=== PATIENT | female | born 1995 | race Caucasian/White ===

== ENCOUNTER 2020-07-18 10:22 | Emergency (ER) | payer OTHER, SELFPAY ==
--- NOTE | ~2020-07-18 | XR_ITS ---
EXAMINATION: XR foot LT min 3V DATE: 07/18/2020 10:51 INDICATION: Left foot pain TECHNIQUE: Dorsoplantar, lateral, and 2 oblique views of the left foot were obtained. COMPARISON: None. FINDINGS: There is dorsolateral soft tissue swelling of the foot overlying the metatarsals. There is no fracture, dislocation, or subluxation. The joint spaces are normal. IMPRESSION: 1. Dorsolateral soft tissue swelling of the foot without underlying osseous abnormality. Reviewed, dictated and finalized at location A. IMPRESSION: 1. Dorsolateral soft tissue swelling of the foot without underlying osseous abn ormality.
[2020-07-18 10:39] VITALS: BP 117/55; PULSE 106; RESP 16; TEMP 37.3; O2SAT 100
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
--- NOTE | 2020-07-18 12:09 | PC.NURSE ---
PT TAKEN TO RADIOLOGY AND ROOM IN WHEELCHAIR
== END 2020-07-18 11:55 | disposition home or self-care (01) ==
PROVIDERS: Emergency Provider Registered Nurse; PCP Family Medicine
DX: S90.32XA Contusion of left foot, initial encounter (principal); V86.16XA Passenger of dirt bike or motor/cross bike injured in traffic accident, initial encounter; F17.210 Nicotine dependence, cigarettes, uncomplicated
CPT/HCPCS: 73630; 99203; G0463

== ENCOUNTER 2020-12-06 16:45 | Emergency (ER) | payer MEDICAID, SELFPAY ==
--- NOTE | 2020-12-06 16:53 | ED.URI ---
HPI - URI/Sore Throat General Chief Complaint: Upper Respiratory Infection Stated Complaint: possible sinus infection Source: patient Mode of arrival: ambulatory Limitations: no limitations History of Present Illness HPI Narrative: Patient is a 25-year-old female who presents complaining of headache, sinus pressure and congestion x2 weeks. Patient reports that she had Covid in early October and has since recovered. Patient reports signs and symptoms for the past 2 weeks that are unresolved with use of [id number] medications at this time. She denies fever, chills, cough or other complaints. She has no significant medical history. MD elicited complaint: sinus pain Related Data Allergies Allergy/AdvReac Type Severity Reaction Status Date / Time No Known Allergies Allergy Verified 12/06/20 16:52 Review of Systems Review of Systems: Narrative: CONSTITUTIONAL: Denies fever, chills, or sweats. EYES: Denies visual changes, redness, or discharge. ENT: Reports congestion and pressure CARDIOVASCULAR: Denies chest pain, palpitations, or edema. RESPIRATORY: Denies cough or dyspnea. GASTROINTESTINAL: Denies abdominal pain, nausea, vomiting, or diarrhea. GENITOURINARY: Denies dysuria or hematuria. SKIN: Denies rash or itching. MUSCULOSKELETAL: Denies back pain, joint pain, or myalgia. NEUROLOGIC: Reports headache, denies numbness, dizziness, or weakness. PSYCHIATRIC: Denies anxiety or depression. [facility] Past Medical History Medical History Fracture of left upper limb Headache Stress fracture of right foot Surgical History Surgical History History of dilatation and curettage Social History Social History Smoking packs per day: 0.25 Smoking cigarettes per day: 5.0 Years smoked: 7 Smoking pack-years: 1.75 Smoking status: Current every day smoker Tobacco type: cigarettes Alcohol intake: current Substance use: never Gender identity (if verbalized by the patient): Female Comments At the time of signature, I have reviewed and agree with nursing past medical, surgical, social, and family history unless otherwise noted. Please see nursing chart for further information. There is no relevant family history pertinent to the presenting complaint. Exam Narrative: Exam Narrative: GENERAL: Well-appearing, well-nourished, and in no acute distress. HEAD: Normocephalic, atraumatic. EYES: No redness or drainage. Conjunctiva are normal. ENT: Mucous membranes pink and moist. Nares clear. No rhinorrhea. Frontal sinus tenderness with palpation NECK: AROM. Supple. No lymphadenopathy. CHEST: No respiratory distress. HEART: Regular rate and rhythm. EXTREMITIES: Normal range of motion. SKIN: Warm, dry, no rash. NEURO: No focal deficits. Alert and oriented x3. Gait steady. PSYCH: Normal affect. No signs of depression or anxiety. MDM - URI/Sore Throat MDM Narrative Medical decision making narrative: Patient most likely has sinusitis. Augmentin to be started at this time. Discussed with patient the need to stay well-hydrated as well as follow-up with PCP. Patient agrees with plan of care. Patient is stable for discharge home with outpatient follow-up as directed Differential Diagnosis Differential diagnosis: Likely upper respiratory infection, sinusitis and viral infection Medical Records Attestation: I reviewed the patient's medical records. Critical Care Time Critical Care Time Critical Care Time: No Discharge Plan Discharge Clinical Impression: Sinusitis Qualifiers: Sinusitis location: unspecified location Chronicity: acute Recurrence: not specified as recurrent Qualified Code(s): J01.90 - Acute sinusitis, unspecified Patient Disposition: Home, Self-Care Condition: Stable Instructions: Antibiotic Form, Sinusitis (ED) Additional In
[2020-12-06 17:01] VITALS: BP 130/62; PULSE 72; RESP 16; TEMP 36.6; O2SAT 100
== END 2020-12-06 17:24 | disposition home or self-care (01) ==
PROVIDERS: Emergency Provider Nurse Practitioner
DX: J01.90 Acute sinusitis, unspecified (principal); F17.210 Nicotine dependence, cigarettes, uncomplicated
CPT/HCPCS: 99213; G0463

== ENCOUNTER 2021-04-18 16:10 | Emergency (ER) | payer OTHER, SELFPAY ==
[2021-04-18 16:41] VITALS: BP 125/75; PULSE 92; RESP 16; TEMP 37.4; O2SAT 100
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
== END 2021-04-18 17:07 | disposition home or self-care (01) ==
PROVIDERS: Emergency Provider Nurse Practitioner Family
DX: M62.830 Muscle spasm of back (principal); S39.012A Strain of muscle, fascia and tendon of lower back, initial encounter; X50.9XXA Other and unspecified overexertion or strenuous movements or postures, initial encounter; F17.210 Nicotine dependence, cigarettes, uncomplicated
CPT/HCPCS: 99213; G0463

== ENCOUNTER 2021-06-11 15:21 | Emergency (ER) | payer OTHER, SELFPAY ==
[2021-06-11 15:36] VITALS: BP 112/70; PULSE 67; RESP 20; TEMP 36.8; O2SAT 100
--- NOTE | 2021-06-11 16:05 | ED.GENADULT ---
HPI - General Adult General Chief complaint: Upper Respiratory Infection Stated complaint: sinus infection Source: patient Mode of arrival: ambulatory Limitations: no limitations History of Present Illness HPI narrative: 25 y/o female. PMHx: None reported. Presents to [facility] today with acute complaints of sinus congestion and maxillary facial pressure, worsening for the past 3 days. No fever, chills. No cough, chest congestion, abdominal pain, N.V. She denies HUNTER, sore throat, Otalgia. Client reports sub-therapeutic relief to home OTC remedies. No additional acute c/o illness has been relayed upon exam. Related Data Allergies Allergy/AdvReac Type Severity Reaction Status Date / Time No Known Allergies Allergy Verified 06/11/21 16:05 Review of Systems Review of Systems: CONSTITUTIONAL: Denies fever, chills, sweats. EYES: Denies visual changes, redness, discharge. ENT: Positive rhinorrhea, congestion. No sore throat, otalgia. CARDIOVASCULAR: Denies chest pain, palpitations, edema. RESPIRATORY: Denies dyspnea, wheezing, cough GASTROINTESTINAL: Denies abdominal pain, nausea, vomiting, diarrhea. GENITOURINARY: Denies dysuria, hematuria, abnormal discharge SKIN: Denies rash or itching. MUSCULOSKELETAL: Denies acute back pain, joint pain, or myalgia. NEUROLOGIC: Denies numbness, or focal weakness. PSYCHIATRIC: Denies anxiety or depression. All systems reviewed & are unremarkable except as noted in HPI and below PMFSH Past Medical History Medical History Fracture of left upper limb Headache Stress fracture of right foot Surgical History Surgical History History of dilatation and curettage Social History Social History Smoking packs per day: 0.25 Smoking cigarettes per day: 5.0 Years smoked: 7 Smoking pack-years: 1.75 Smoking status: Current every day smoker Tobacco type: cigarettes Alcohol intake: current Substance use: never Gender identity (if verbalized by the patient): Female Exam Narrative: GENERAL: This is a well-nourished, well-developed adult, in no apparent distress. HEAD: normocephalic, atraumatic. EYES: PERRL. Sclera clear/white. EARS: External ears normal, auditory canals clear and without drainage, TMs normal. NOSE: External nose normal. Positive purulent nasal congestion. no obstruction, nares patent. PND and maxillary sinus pressure, reproducible. THROAT: Mucous membranes moist, posterior pharynx clear. No exudates. NECK: Neck supple, non-tender without lymphadenopathy, masses or thyromegaly. CARDIOVASCULAR: Regular rate and rhythm without murmurs, gallops, or rubs. RESPIRATORY: Clear to auscultation. Breath sounds equal bilaterally. No wheezes, rales, or rhonchi. GASTROINTESTINAL: Abdomen soft, non-tender, nondistended. Bowel sounds are active. No guarding. SKIN: warm, intact with no suspicious lesions or rash, good texture and turgor. NEURO: Alert, active, and age appropriate. No focal neurologic deficits. EXTREMITIES: Negative. Course Course Emergency Course: -25 y/o female. Negative PMH. -Reports sinus congestion, nasal discharge, facial pressure, worsening. -No Covid 19 concerns. Vital Signs Vital signs: Vital Signs Temperature 36.8 C 06/11/21 15:36 Pulse Rate 67 06/11/21 15:36 Respiratory Rate 20 06/11/21 15:36 Blood Pressure 112/70 06/11/21 15:36 Pulse Oximetry 100 06/11/21 15:36 Temperature 36.8 C 06/11/21 15:36 Pulse Rate 67 06/11/21 15:36 Respiratory Rate 20 06/11/21 15:36 Blood Pressure 112/70 06/11/21 15:36 Pulse Oximetry 100 06/11/21 15:36 Medical Decision Making [facility] Narrative Medical decision making narrative: -Physical exam consistent with Maxillary Sinusitis, Acute, non-toxic. -Start Zpack & Medrol dose regimen. -Re
== END 2021-06-11 16:09 | disposition home or self-care (01) ==
PROVIDERS: Emergency Provider Nurse Practitioner Adult Health
DX: J01.90 Acute sinusitis, unspecified (principal); F17.210 Nicotine dependence, cigarettes, uncomplicated
CPT/HCPCS: 99213; G0463

== ENCOUNTER 2022-03-06 13:08 | Emergency (ER) | payer OTHER, SELFPAY ==
--- NOTE | ~2022-03-06 | XR_ITS ---
EXAMINATION: XR hip RT min 3V w AP pelvis INDICATION: Right hip pain TECHNIQUE: AP view the pelvis and three views of the right hip are obtained. COMPARISON: None available FINDINGS: Bone alignment is normal. There is no fracture. The soft tissues are unremarkable. An IUD i s noted in the pelvis. IMPRESSION: 1. No acute osseous abnormality. Reviewed, dictated and finalized at location F.
--- NOTE | ~2022-03-06 | CT_ITS ---
EXAMINATION: CTA abd aorta runoff DATE: 03/06/2022 18:09 INDICATION: Recent right hip surgery with right foot: The touch and skin changes in the right lower e xtremity TECHNIQUE: Computed tomographic angiography (CTA) of the abdomen, pelvis, and both lower extremities was performed with 150 mL Omnipaque-350 intravenous contrast. The dose-length product (DLP) was 651.6 4 mGy-cm. Maximum intensity projection 3D-reconstructions of the arteries were created by the technol gunnar on a separate workstation. Automated exposure control and iterative reconstruction technique we re employed. COMPARISON: None. FINDINGS: ABDOMINAL AORTA AND ITS BRANCHES: Celiac axis, superior mesenteric artery, inferior mesenteric artery are unremarkable. There are two r ight renal arteries which originate immediately adjacent to one another. A single left renal artery i s present. PELVIC VASCULATURE: Normal RIGHT LOWER EXTREMITY VASCULATURE: The anterior tibial artery is diminutive beyond its midportion and not visualized at the ankle. The d orsalis pedis artery is not well demonstrated. The right lower extremity vasculature is otherwise nor mal with a two-vessel runoff at the ankle. LEFT LOWER EXTREMITY VASCULATURE: The anterior tibial artery is not well opacified in its distalmost portion. The left lower extremity vasculature is otherwise normal with a two-vessel runoff at the ankle. ADDITIONAL FINDINGS: The lung bases are clear. The heart size is normal. The liver, spleen, pancreas, gallbladder, and adr enal glands are normal. The kidneys are unremarkable. No pathologically enlarged abdominal or pelvic lymph nodes are identified. There is no free intraperitoneal gas or evidence of bowel obstruction. An IUD is in expected position. There is prominence of the periatrial veins in the pelvis. A small area of surgical change is noted overlying the right hip. IMPRESSION: 1. Right anterior tibial artery not well opacified beyond its midportion and not visualized ankle. Ri ght dorsalis pedis artery not well demonstrated. 2. Left anterior tibial artery not well opacified in its distalmost portion. Reviewed, dictated and finalized at location F. IMPRESSION: 1. Right anterior tibial artery not well opacified beyond its midportion and no t visualized ankle. Right dorsalis pedis artery not well demonstrated. 2. Left anterior tibial artery not well opacified in its distalmost portion.
--- NOTE | ~2022-03-06 | US_ITS ---
EXAMINATION: US venous doppler LE RT DATE: 03/06/2022 15:36 INDICATION: Skin discoloration of the right lower extremity, recent hip surgery TECHNIQUE: Heck scale images without and with compression and Doppler images of the right lower extre mity veins were obtained. COMPARISON: None FINDINGS: The right common femoral vein, profunda femoral vein, femoral vein, popliteal vein, peronea l trunk, posterior tibial veins, and greater saphenous vein are patent. IMPRESSION: 1. Patent right lower extremity veins. No evidence of deep venous thrombosis. Reviewed, dictated and finalized at location F.
[2022-03-06 13:31] VITALS: BP 145/79; PULSE 101; RESP 19; TEMP 37.1; O2SAT 99
--- NOTE | 2022-03-06 13:38 | ED.LOWEXIN ---
HPI - Extremity Injury (Lower) General Chief Complaint: Extremity Injury, Lower <Regina Valentin PA-C - Last Filed: 03/06/22 19:31> Stated Complaint: hip surgery two weeks ago, reports calf pain <Regian Valentin PA-C - Last Filed: 03/06/22 19:31> Time Seen by Provider: 03/06/22 13:32 <ADALI Mata Last Filed: 03/06/22 19:31> Source: patient <ADALI Mata Last Filed: 03/06/22 19:31> Mode of arrival: ambulatory <ADALI Mata Last Filed: 03/06/22 19:31> Limitations: no limitations <ADALI Mata Last Filed: 03/06/22 19:31> History of Present Illness HPI Narrative: Patient is a 26-year-old female who presents the ED with report of tingling and coldness in her right lower leg. Patient reports she had left hip surgery done 2 weeks ago at [facility] for a labral tear and clean-out. She has been on aspirin 81 mg once daily since the surgery. She has been doing well since then but does report having tingling sensation, like [id number], in her right lower leg since the surgery. She also reports having temperature difference and coldness in her right lower leg compared to the left. Yesterday, she noticed her right lower extremity to be discolored and red. She took a picture of this on her phone. She called her surgeon's office but was only able to make an appointment for Saturday, thus she decided to present to the ED here today. Patient denies any weakness, fever, chills, pain, swelling, chest pain, SOB. <ADALI Mata Last Filed: 03/06/22 19:31> Related Data Home Medications: Home Medications Medication Instructions Recorded Confirmed aspirin [Aspir-81] 81 mg PO DAILY 03/06/22 diazepam 5 mg PO BID PRN 03/06/22 naproxen 500 mg PO BID 03/06/22 sertraline 50 mg PO DAILY 03/06/22 <ADALI Mata Last Filed: 03/06/22 19:31> Allergies/Adverse Reactions: Allergies Allergy/AdvReac Type Severity Reaction Status Date / Time No Known Allergies Allergy Verified 03/06/22 14:41 <Regina Valentin PA-C - Last Filed: 03/06/22 19:31> Review of Systems Review of Systems: CONSTITUTIONAL: Denies fever, chills. CARDIOVASCULAR: Denies chest pain. RESPIRATORY: Denies dyspnea. SKIN: Reports cold temperature to R lower leg. Denies swelling to RLE. MUSCULOSKELETAL: Denies RLE pain. NEUROLOGIC: Reports tingling/pins and needles sensation to RLE. Denies weakness. <Regina Valentin PA-C - Last Filed: 03/06/22 19:31> All systems reviewed & are unremarkable except as noted in HPI and below <Regina Valentin PA-C - Last Filed: 03/06/22 19:31> PMFSH Past Medical History Medical History: Medical History (Updated 03/06/22 @ 18:42 by Regina Valentin PA-C) No pertinent past medical history <Regina Valentin PA-C - Last Filed: 03/06/22 19:31> Surgical History Surgical History: Surgical History (Updated 03/06/22 @ 18:42 by Regina Valentin PA-C) History of hip surgery <Regina Valentin PA-C - Last Filed: 03/06/22 19:31> Social History Social History: Social History (Updated 03/06/22 @ 18:31 by Regina Valentin PA-C) Smoking status: Never smoker <Regina Valentin PA-C - Last Filed: 03/06/22 19:31> Exam Narrative: GENERAL: Well appearing, well-nourished, non-toxic, in no acute distress. HEAD: Normocephalic, atraumatic. NECK: Supple. No adenopathy, no masses. RESPIRATORY: Airway patent, respirations nonlabored. Clear to auscultation bilaterally, no rales, rhonchi, wheezing. CARDIOVASCULAR: Regular rate and rhythm without murmurs, rubs, or gallops. Femoral, popliteal, and PT pulses 2+ and equal bilaterally. Bilateral DP pulses not palpated or Dopplered on exam. MUSCULOSKELETAL: Moves all extremities. Strength/ROM intact of RLE. No edema in RLE. No R calf tenderness. SKIN: Warm, dry, RLE slightly cooler than LLE. No rashes. No warmth or erythema or RLE. Post surgical steri strips in place over R hip, wound jb
--- NOTE | 2022-03-06 14:51 | PC.NURSE ---
Right post tibial pulse obtained using doppler.
[2022-03-06 17:37] LABS: Anion Gap 8 mmol/L (8-16); Blood Urea Nitrogen 12 mg/dL (7-17); Calcium 9.3 mg/dL (8.4-10.2); Carbon Dioxide 30 mmol/L (22-30); Chloride 100 mmol/L (98-107); Estimated CRCL calculation 82 ml/min; Estimated Glomerular Filt Rate > 60; Glucose 73 mg/dL (65-110); Potassium 3.8 mmol/L (3.4-5.0); Sodium 138 mmol/L (137-145)
[2022-03-06 17:38] VITALS: BP 129/73; PULSE 79; RESP 18; O2SAT 99
[2022-03-06 19:06] VITALS: BP 129/73; PULSE 80; RESP 18; O2SAT 99
== END 2022-03-06 19:05 | disposition home or self-care (01) ==
PROVIDERS: Physician Assistant; Emergency Provider Emergency Medicine; PCP Family Medicine
DX: R29.898 Other symptoms and signs involving the musculoskeletal system (principal); M79.661 Pain in right lower leg; Z98.890 Other specified postprocedural states
CPT/HCPCS: 36415; 73502; 75635; 80048; 81025; 93971; 99284; Q9967

== ENCOUNTER 2022-09-23 15:31 | Emergency (ER) | payer OTHER, SELFPAY ==
[2022-09-23 15:57] VITALS: BP 116/61; PULSE 69; RESP 16; TEMP 36.5; O2SAT 100
--- NOTE | 2022-09-23 17:42 | ED.URI ---
HPI - URI/Sore Throat General Chief Complaint: Upper Respiratory Infection Stated Complaint: Sore Throat Time Seen by Provider: 09/23/22 17:42 Source: patient Mode of arrival: ambulatory Limitations: no limitations History of Present Illness HPI Narrative: 27-year-old female presents with complaint of sore throat, cough, nasal congestion, fatigue for 2 days. Reports both her kids at sick with similar symptoms. Denies nausea vomiting diarrhea. No chest pain or shortness of breath. Taking [id number] Mucinex cold and flu to Treat her symptoms. all systems reviewed and negative except as noted above. Related Data Home Medications Medication Instructions Recorded Confirmed sertraline 50 mg tablet 50 mg PO DAILY 03/06/22 09/23/22 Allergies Allergy/AdvReac Type Severity Reaction Status Date / Time No Known Allergies Allergy Verified 09/23/22 16:48 Review of Systems Review of Systems: CONSTITUTIONAL: Denies fever, chills, or sweats. Reports fatigue. EYES: Denies visual changes, redness, or discharge. ENT: Reports rhinorrhea, congestion, sore throat,, tonsil stones. Denies otalgia. CARDIOVASCULAR: Denies chest pain, palpitations, or edema. RESPIRATORY: reports cough. Denies dyspnea. GASTROINTESTINAL: Denies abdominal pain, nausea, vomiting, or diarrhea. GENITOURINARY: Denies dysuria or hematuria. SKIN: Denies rash or itching. MUSCULOSKELETAL: Denies back pain, joint pain, or myalgia. NEUROLOGIC: Denies headache, numbness, or weakness. PSYCHIATRIC: Denies anxiety or depression. All other systems reviewed are negative, except as documented in HPI. [facility] Past Medical History Medical History (Updated 09/23/22 @ 17:54 by Winnie Estrada NP) No pertinent past medical history Surgical History Surgical History (Updated 03/06/22 @ 18:42 by Regina Haley PA-C) History of hip surgery Social History Social History (Updated 03/06/22 @ 18:31 by Regina Haley PA-C) Smoking status: Never smoker Comments At time of signature, agree with nursing past medical, surgical, social and family history. There is no relevant family history pertinent to the presenting complaint. Exam Narrative: GENERAL: This is a well-nourished, well-developed patient, in no apparent distress. HEAD: normocephalic, atraumatic. EYES: PERRL. Sclera clear/white. Vision is grossly intact. EARS: External ears normal, auditory canals clear and without drainage, TMs normal without perforation. Hearing grossly intact. NOSE: External nose normal with clear nasal drainage. THROAT: Mucous membranes moist, To tonsil stones noted to right tonsil with erythema. NECK: Neck supple, non-tender without lymphadenopathy, masses or thyromegaly. CARDIOVASCULAR: Regular rate and rhythm without murmurs, gallops, or rubs. RESPIRATORY: Clear to auscultation. Breath sounds equal bilaterally. No wheezes, rales, or rhonchi. SKIN: warm, Dry, intact with no suspicious lesions or rash, good texture and turgor. NEURO: awake, alert, and oriented to person, place and time. There were no obvious focal neurologic abnormalities. EXTREMITIES: No joint tenderness, effusion, or edema noted. Course Course Level of Care: Express Care Visit Vital Signs Vital signs: Vital Signs Temperature 36.5 C 09/23/22 15:57 Pulse Rate 69 09/23/22 15:57 Respiratory Rate 16 09/23/22 15:57 Blood Pressure 116/61 09/23/22 15:57 Pulse Oximetry 100 09/23/22 15:57 Oxygen Delivery Room Air 09/23/22 15:57 Temperature 36.5 C 09/23/22 15:57 Pulse Rate 69 09/23/22 15:57 Respiratory Rate 16 09/23/22 15:57 Blood Pressure 116/61 09/23/22 15:57 Pulse Oximetry 100 09/23/22 15:57 Oxygen Delivery Room Air 09/23/22 15:57 reviewed MDM - URI/Sore Throat MDM Narrative Medical decision making narrative: Patient is aware of diagnosis, understands and agrees to treatment plan. Anticipatory guidance given. Patient agre
== END 2022-09-23 18:02 | disposition home or self-care (01) ==
PROVIDERS: Emergency Provider Nurse Practitioner Family; PCP Family Medicine
DX: J06.9 Acute upper respiratory infection, unspecified (principal); J35.8 Other chronic diseases of tonsils and adenoids
CPT/HCPCS: 87081; 87804; 87880; 99213; G0463

== ENCOUNTER 2022-09-26 19:47 | Emergency (ER) | payer OTHER, SELFPAY ==
--- NOTE | ~2022-09-26 | XR_ITS ---
EXAMINATION: XR chest 2V DATE: 09/26/2022 20:39 INDICATION: Pain with respiration TECHNIQUE: Frontal and lateral views of the chest are obtained COMPARISON: None available FINDINGS: The lungs are free of acute opacities. No pleural effusion or pneumothorax. The cardiomedia stinal silhouette is normal. The visualized bones and soft tissues are unremarkable. IMPRESSION: 1. No acute cardiopulmonary abnormality. Reviewed, dictated and finalized at location F. IGURATION ENGINEER
--- NOTE | 2022-09-26 19:55 | ECG_ITS ---
Measurements Intervals Ramona Rate: 65 P: -13 ND: 130 QRS: 81 QRSD: 104 T: 54 QT: 405 QTc: 423 Interpretive Statements SINUS RHYTHM BASELINE WANDER- V4-V6 NORMAL ECG NO PREVIOUS ECG AVAILABLE FOR COMPARISON Electronically Signed On 09-26-2022 20:28:48 MANUFACTURING CLERK by Vernon Prieto D.O.
[2022-09-26 20:00] VITALS: BP 123/59; PULSE 70; RESP 18; TEMP 36.8; O2SAT 98
--- NOTE | 2022-09-26 20:33 | ED.SOB ---
HPI - SOB/Dyspnea General Chief Complaint: Shortness of Breath/Dyspnea Stated Complaint: chest tightness Time Seen by Provider: 09/26/22 20:20 History of Present Illness HPI Narrative: Pt presents with sharp chest pain in left chest with deep breaths and SOB for several days. Pt denies calf pain. Pt does not take BCP has not been on long trips and has no FH of clots. Related Data Home Medications Medication Instructions Recorded Confirmed sertraline 50 mg tablet 50 mg PO DAILY 03/06/22 09/23/22 Allergies Allergy/AdvReac Type Severity Reaction Status Date / Time No Known Allergies Allergy Verified 09/23/22 16:48 Review of Systems Review of Systems: All systems reviewed & are unremarkable except as noted in HPI and below PMFSH Past Medical History Medical History (Updated 09/26/22 @ 21:23 by Naveen Diaz III, DO) No pertinent past medical history Surgical History Surgical History (Updated 03/06/22 @ 18:42 by Regina Haley PA-C) History of hip surgery Social History Social History (Updated 03/06/22 @ 18:31 by Regina Haley PA-C) Smoking status: Never smoker Exam Const: General: healthy appearing Nutritional Appearance: well nourished Orientation/consciousness: patient oriented x3 Limitations: no limitations Eyes: Conjunctivae: conjunctivae normal EOM: EOMs intact bilaterally Neck: Neck: normal visual inspection and no lymphadenopathy Chest: Chest palpation & inspection: tenderness costochondral junction Resp: Effort & Inspection: normal respiratory effort Auscultation: clear to auscultation bilaterally Cardio: Rate: regular rate Rhythm: regular rhythm GI: GI Palp: Yes Soft to palpation Auscultation: normal bowel sounds Skin: General skin exam: normal color Neuro: General: patient oriented x3, moves all extremities, no meningeal signs, no focal motor deficits and CN's II-XI intact bilaterally Cranial nerves: Yes Nystagmus not present Speech: normal speech Extrem: General: normal to inspection and no clubbing, cyanosis or edema Psych: Mental Status: mental status grossly normal Affect: normal affect Attitude: cooperative Course Vital Signs Vital signs: Vital Signs Temperature 98.2 F 09/26/22 20:00 Pulse Rate 70 09/26/22 20:00 Respiratory Rate 18 09/26/22 20:00 Blood Pressure 123/59 L 09/26/22 20:00 Pulse Oximetry 98 09/26/22 20:00 Oxygen Delivery Room Air 09/26/22 20:00 Temperature 98.2 F 09/26/22 20:00 Pulse Rate 70 09/26/22 20:00 Respiratory Rate 18 09/26/22 20:00 Blood Pressure 123/59 L 09/26/22 20:00 Pulse Oximetry 98 09/26/22 20:00 Oxygen Delivery Room Air 09/26/22 20:25 MDM - SOB/Dyspnea Lab Data Labs: Lab Results 09/26/22 Range/Units 20:44 D-Dimer 0.45 (<0.48) ug/mL ECG Data EKG #1: Interpretation: nsr rate [address] or t wave changes Discharge Plan Discharge Clinical Impression: Pleurisy Patient Disposition: Home, Self-Care Condition: Stable Instructions: Antibiotic Form, Pleurisy (DC) Prescriptions: New ibuprofen 800 mg tablet 800 mg PO TID Qty: 30 0RF No Action amoxicillin 500 mg tablet 500 mg PO Q12H 10 Days Qty: 20 0RF methylprednisolone [Medrol (Cody)] 4 mg tablets,dose pack See Rx Instructions PO .COMPLEX Qty: 21 0RF Rx Instructions: orally per package directions sertraline 50 mg Tablet 50 mg PO DAILY Follow-up/Referrals: Remy,Sneha George MD [Primary Care Provider] -
--- NOTE | 2022-09-26 20:38 | PC.NURSE ---
Patient off unit in CT.
[2022-09-26 21:10] LABS: D Dimer 0.45 ug/mL (<0.48)
== END 2022-09-26 21:54 | disposition home or self-care (01) ==
PROVIDERS: Emergency Provider Emergency Medicine; PCP Family Medicine
DX: R09.1 Pleurisy (principal)
CPT/HCPCS: 36415; 71046; 85380; 93005; 99283

== ENCOUNTER 2022-10-28 15:05 | Emergency (ER) | payer OTHER, SELFPAY ==
--- NOTE | ~2022-10-28 | US_ITS ---
EXAMINATION: US OB <=14 wk fetus w TV DATE: 10/28/2022 16:52 INDICATION: Bleeding during first trimester TECHNIQUE: Real-time pelvic ultrasound utilizing both a transvaginal and transabdominal probe was pe rformed. The interpreting radiologist was not present for the study. COMPARISON: None. FINDINGS: The uterus measures 8.8 x 6.2 x 4.7 cm. The endometrial complex measures 9 mm in thickness with no di scernible intrauterine gestational sac. Cervical length measures approximately 3.6 cm. The right ovary measures 2.7 x 1.8 x 2.1 cm. The left ovary measures 3.6 x 2.4 x 2.4 cm. A couple sma ll anechoic follicles as well as a 7 mm shadowing calcification at the left ovary, the latter also ev ident on earlier CT scan dated 03/06/2022. Vascular flow is identified in both ovaries on color Dopple r. There is no free fluid in the pelvis. IMPRESSION: 1. No evident intrauterine gestational sac. Differential would include early, failed or ectopic pregn micaela. Correlate with serial beta-hCG levels. Reviewed, dictated and finalized at location A. LAYER HELPER IMPRESSION: 1. No evident intrauterine gestational sac. Differential would include early, f yanna or ectopic . Correlate with serial beta-hCG levels.
--- NOTE | 2022-10-28 18:01 | PC.NURSE ---
Patient states she tested positive for on Saturday. Patient states today she began having some cramping and bleeding through a tampon in an hor. Patient states bleeding has slowed down at this time.
--- NOTE | 2022-10-28 18:07 | ED.PREGNANCY ---
HPI - General Chief complaint: Vaginal Bleeding Stated complaint: 5 weeks / bleeding Time Seen by Provider: 10/28/22 18:01 History of Present Illness HPI Narrative: Patient is a 27-year-old G4, P2 female here for evaluation of vaginal bleeding. Patient states that she took a positive test last week after she had missed her cycle. States that she began to bleed today and have lower abdominal cramping. She has saturated through 1 menstrual pad every 3 hours and does note small blood clots. This is heavier than her usual cycle. She contacted her VICE PRESIDENT OF SOFTWARE ENGINEERING at [facility] who recommended ED evaluation. She has an appointment with them tomorrow. She is a positive. Related Data Allergies Allergy/AdvReac Type Severity Reaction Status Date / Time No Known Allergies Allergy Verified 06/11/21 16:05 Review of Systems Review of Systems: Gen.: Denies fevers or chills Eyes: Denies eye pain or visual change ENT: Denies congestion Respiratory: Denies shortness of breath or cough CV: Denies chest pain or palpitations GI: Reports lower abdominal pain. reports vaginal bleeding Musculoskeletal: Denies back pain or muscle pain Neuro: Denies numbness, tingling, weakness or focal weakness Skin: Denies rash Except as documented, all other systems reviewed and negative [facility] Past Medical History Medical History Fracture of left upper limb Headache Stress fracture of right foot Surgical History Surgical History History of dilatation and curettage Social History Social History Smoking packs per day: 0.25 Smoking cigarettes per day: 5.0 Years smoked: 7 Smoking pack-years: 1.75 Smoking status: Current every day smoker Tobacco type: cigarettes Alcohol intake: current Substance use: never Gender identity (if verbalized by the patient): Female Exam Narrative: APPEARANCE: Well appearing, no pain in distress, well-nourished. Head: Normocephalic and atraumatic. EYES: PERRLA/EOMI, conjunctivae clear NOSE: No nasal drainage EARS: External ear normal in appearance THROAT: Oropharynx is clear. Mucous membranes are moist. NECK: Supple. No adenopathy, no masses. RESPIRATORY: Airway patent, respirations nonlabored. Clear to auscultation bilaterally, no rales, rhonchi, wheezing. CARDIOVASCULAR: Regular rate and rhythm without murmurs, rubs, or gallops. : Exam performed with engineer/conductor Radha. Cervical os is closed. Scant blood noted in vaginal vault. ABDOMINAL: Normoactive bowel sounds. Soft, nontender, nondistended. No rebound tenderness or guarding. MUSCULOSKELETAL: Extremities are warm and well-perfused. Moves all extremities well. No edema. NEURO: Normal speech. No focal neurologic deficits. SKIN: Skin is warm and dry. No rashes. PSYCHIATRIC: Normal affect/mood. MDM - OB/Uterine Contractions MDM Narrative Medical decision making narrative: 27-year-old female here for evaluation of lower abdominal cramping and vaginal bleeding over the past day. She took numerous faintly positive tests 3 days ago. Her cervical os is closed and she has scant amount of blood in the vaginal vault but no brisk bleed or hemorrhage. Hemoglobin is normal. Her quant is undetectable. Ultrasound shows no gestational sac (was obtained in triage before hCG was back). Patient has an appointment tomorrow with her VICE PRESIDENT OF SOFTWARE ENGINEERING. Very unlikely to be an ectopic given negative quant. This is likely a normal menstrual cycle. Encouraged her to keep the appointment tomorrow with her VICE PRESIDENT OF SOFTWARE ENGINEERING, she was given return precautions and she voiced understanding. Lab Data 10/28/22 18:16 Labs: Lab Results 10/28/22 10/28/22 Range/Units 18:16 18:16 WBC 7.0 (4.5-10.0) K/mm3 RBC 4.04 L (4.2-5.4) M/mm3 Hgb 12
[2022-10-28 18:27] LABS: Basophils Absolute Auto 0.1 K/mm3 (0.0-0.1); Basophils Percent Auto 0.7 % (0.2-1.2); Eosinophils Absolute Auto 0.2 K/mm3 (0-0.3); Eosinophils Percent Auto 2.1 % (0-4.4); Hemoglobin 12.7 g/dL (12.0-15.0); Immature Granulocyte Absolute 0.01 K/mm3 (0.00-0.031); Immature Granulocyte Percent A 0.1 % (0-0.5); Lymphocytes Absolute Auto 2.41 K/mm3 (0.9-3.2); Lymphocytes Percent Auto 34.3 % (18.3-44.2); Mean Corpuscular HGB Conc 34.3 g/dl (32-36); Mean Corpuscular Hemoglobin 31.4 pg (26-34); Mean Corpuscular Volume 91.6 fl (80-100); Mean Platelet Volume 9.1 fl (7.4-10.4); Monocytes Absolute Auto 0.4 K/mm3 (0.1-0.6); Monocytes Percent Auto 6.1 % (2.6-8.5); Neutrophils Percent Auto 56.7 % (45.5-73.1); Platelet Count Result 315 k/mm3 (150-375); Red Blood Count 4.04 M/mm3 (4.2-5.4); Red Cell Distribution Width 11.9 % (11.5-14.5)
[2022-10-28 19:00] LABS: Beta HCG Quantitative < 2.39 mIU/ML
[2022-10-28 19:32] VITALS: BP 113/75; PULSE 73; RESP 15; TEMP 36.8; O2SAT 100
== END 2022-10-28 19:33 | disposition home or self-care (01) ==
PROVIDERS: Emergency Medicine; Emergency Provider Physician Assistant; PCP Family Medicine
DX: N93.9 Abnormal uterine and vaginal bleeding, unspecified (principal); F17.210 Nicotine dependence, cigarettes, uncomplicated
CPT/HCPCS: 36415; 76801; 76817; 84702; 85025; 85461; 86850; 86900; 86901; 99284

== ENCOUNTER 2022-12-13 18:32 | Emergency (ER) | payer OTHER, SELFPAY ==
--- NOTE | 2022-12-13 18:36 | ED.BACK ---
HPI - Back Pain/Injury General Chief Complaint: Back Pain/Injury Stated Complaint: BACK PAIN Time Seen by Provider: 12/13/22 18:36 Source: patient and RN notes reviewed History of Present Illness HPI Narrative: Patient is a 27-year-old female who presents to urgent care with complaints of low back pain more notable on the left. Patient states that it started Saturday after moving and lifting heavy things in her basement for renovation purposes. Patient states that she has tried her prescription of Flexeril, ibuprofen, Tylenol and ice and heat for pain without much relief. Patient states that she has also seen a chiropractor without any improvement. Patient denies any loss of bowel or bladder or radiation of the pain. No other acute complaints. No acute distress noted. Patient aware of the plan of care. Some parts of this dictation were generated by voice recognition software and may contain typographical and/or grammatical inaccuracies. Related Data Home Medications Medication Instructions Recorded Confirmed sertraline 100 mg tablet 100 mg PO DAILY 12/13/22 12/13/22 Allergies Allergy/AdvReac Type Severity Reaction Status Date / Time No Known Allergies Allergy Verified 12/13/22 18:50 Review of Systems Review of Systems: CONSTITUTIONAL: Denies fever, chills, or sweats. EYES: Denies visual changes, redness, or discharge. ENT: Denies rhinorrhea, congestion, sore throat, or otalgia. CARDIOVASCULAR: Denies chest pain, palpitations, or edema. RESPIRATORY: Denies cough or dyspnea. GASTROINTESTINAL: Denies abdominal pain, nausea, vomiting, or diarrhea. GENITOURINARY: Denies dysuria or hematuria. SKIN: Denies rash or itching. MUSCULOSKELETAL: Reports of low back pain NEUROLOGIC: Denies headache, numbness, or weakness. All other systems reviewed are negative, except as documented in HPI. [facility] Past Medical History Medical History Fracture of left upper limb Headache Stress fracture of right foot Surgical History Surgical History History of dilatation and curettage Social History Social History Smoking packs per day: 0.25 Smoking cigarettes per day: 5.0 Years smoked: 7 Smoking pack-years: 1.75 Smoking status: Current every day smoker Tobacco type: cigarettes Alcohol intake: current Substance use: never Living arrangements: with family Gender identity (if verbalized by the patient): Female Comments At the time of my signature, I reviewed and agree with the nursing past medical, surgical, social, and family history. There is no relevant family history pertinent to the patient complaint. Exam Narrative: GENERAL: This is a well-nourished, well-developed patient, in no apparent distress. HEAD: normocephalic, atraumatic. EYES: PERRL. Sclera clear/white. Vision is grossly intact. EARS: External ears normal NOSE: External nose normal with no obvious nasal discharge, nares without redness, no rhinorrhea. THROAT: Mucous membranes moist NECK: Neck supple SKIN: warm, intact with no suspicious lesions or rash, good texture and turgor. NEURO: awake, alert, and oriented to person, place and time. There were no obvious focal neurologic abnormalities. EXTREMITIES: No clubbing, cyanosis, or edema. BACK: Negative bilateral SLE. Moderate diffuse lumbar tenderness more notable to the left. Exacerbated pain on reach, bending and twisting motion Course Course Level of Care: Express Care Visit Vital Signs Vital signs: Vital Signs Temperature 99.4 F 12/13/22 18:41 Pulse Rate 86 12/13/22 18:41 Respiratory Rate 16 12/13/22 18:41 Blood Pressure 127/82 12/13/22 18:41 Pulse Oximetry 100 12/13/22 18:41 Temperature 99.4 F 12/13/22 18:41 Pulse Rate 86 12/13/22 18:41 Respiratory Rate 16 12/13/22 18:41 Blo
[2022-12-13 18:41] VITALS: BP 127/82; PULSE 86; RESP 16; TEMP 37.4; O2SAT 100
== END 2022-12-13 19:06 | disposition home or self-care (01) ==
PROVIDERS: Emergency Provider Nurse Practitioner Family
DX: S39.012A Strain of muscle, fascia and tendon of lower back, initial encounter (principal); X50.0XXA Overexertion from strenuous movement or load, initial encounter; F17.210 Nicotine dependence, cigarettes, uncomplicated
CPT/HCPCS: 99213; G0463

== ENCOUNTER 2022-12-21 17:28 | Emergency (ER) | payer OTHER, SELFPAY ==
[2022-12-21 17:35] VITALS: BP 109/62; PULSE 83; RESP 16; TEMP 37.2; O2SAT 99
[2022-12-21 17:37] VITALS: BP 109/62; PULSE 83; RESP 16; TEMP 37.2; O2SAT 99
--- NOTE | 2022-12-21 17:42 | ED.URI ---
HPI - URI/Sore Throat General Chief Complaint: Upper Respiratory Infection Stated Complaint: Sore throat; ear pain Time Seen by Provider: 12/21/22 17:54 Source: patient and RN notes reviewed Mode of arrival: ambulatory Limitations: no limitations History of Present Illness HPI Narrative: 27-year-old female presents with concern for sore throat and left ear pain. Reports 2 day history of symptoms. Reports she was not sure if it was caused from allergens. She has not taken any antihistamines. She denies fever, aches, chills, sweats, cough, rhinorrhea, stuffy nose. Denies headache or stomachache MD elicited complaint: sore throat and other (Ear pain) Related Data Home Medications Medication Instructions Recorded Confirmed sertraline 100 mg tablet 100 mg PO DAILY 12/13/22 12/13/22 Allergies Allergy/AdvReac Type Severity Reaction Status Date / Time No Known Allergies Allergy Verified 12/17/22 09:19 Review of Systems Review of Systems: CONSTITUTIONAL: Denies malaise, chills, sweats, or fever. EYES: Denies visual changes, redness, or discharge. ENT: Denies rhinorrhea, congestion, sinus pain. Reports otalgia and sore throat. CARDIOVASCULAR: Denies chest pain, palpitations, or edema. RESPIRATORY: Denies cough. Denies dyspnea. GASTROINTESTINAL: Denies abdominal pain, nausea, vomiting, diarrhea SKIN: Denies rash or itching. MUSCULOSKELETAL: Denies myalgia. NEUROLOGIC: Denies headache. All systems reviewed & are unremarkable except as noted in HPI and below PMFSH Past Medical History Medical History (Updated 12/17/22 @ 09:19 by Marcial Sanchez) Fracture of left upper limb Headache No pertinent past medical history Stress fracture of right foot Surgical History Surgical History (Updated 12/17/22 @ 09:19 by Marcial Sanchez) History of dilatation and curettage History of hip surgery Social History Social History (System 12/17/22 @ 09:19 by Marcial Sanchez) Smoking packs per day: 0.25 Smoking cigarettes per day: 5.0 Years smoked: 7 Smoking pack-years: 1.75 Smoking status: Current every day smoker Tobacco type: cigarettes Alcohol intake: current Substance use: never Living arrangements: with family Gender identity (if verbalized by the patient): Female Comments At time of signature, agree with nursing past medical, surgical, social and family history. There is no relevant family history pertinent to the presenting complaint Exam Narrative: GENERAL: Well-appearing, well-nourished, and in no acute distress. HEAD: Normocephalic EYES: PERRLA, conjunctivae clear ENT: Nares clear. Mucous membranes moist. TM pearly de la rosa with sharp light reflex bilaterally; no tragal tenderness. Oropharynx not erythematous without lesions. Tonsils not enlarged and without exudate, no drooling, no hoarseness, no trismus, uvula midline. NECK: Supple. No lymphadenopathy CHEST: Clear to auscultation, breath sounds equal. No wheezing, rhonchi, rales, or stridor. No respiratory distress, speaks in full sentences. HEART: Regular rate and rhythm. No murmur heard. SKIN: Warm, dry, no rash. NEURO: Alert and oriented x3. PSYCH: Normal mood and affect Course Course Emergency Course: Patient is aware of diagnosis, understands and agrees to treatment plan. Anticipatory guidance given. Patient agrees to follow-up as directed and is aware of reasons to seek care at the emergency department. Portions of this record may have been created with voice recognition software Level of Care: Express Care Visit Vital Signs Vital signs: Vital Signs Temperature 99.0 F 12/21/22 17:35 Pulse Rate 83 12/21/22 17:35 Respiratory Rate 16 12/21/22 17:35 Blood Pressure 109/62 12/21/22 17:35 Pulse Oximetry 99 12/21/22 17:35 Oxygen Delivery Room Air 12/21/22 17:35 Temperature 99.0 F 12/21/22 17:37 Pulse Rate 83 12/21/22 17:37 Respiratory Rate 16 12/21/22 17:37 Blood Pressure 109/62 12/21/22 17:37 Pulse Oximet
== END 2022-12-21 18:17 | disposition home or self-care (01) ==
PROVIDERS: Emergency Provider Nurse Practitioner; PCP Family Medicine
DX: J02.9 Acute pharyngitis, unspecified (principal); F17.210 Nicotine dependence, cigarettes, uncomplicated
CPT/HCPCS: 87081; 87880; 99213; G0463